=== PATIENT | male | born 1950 | race Caucasian/White ===

== ENCOUNTER 2018-08-07 13:24 | Emergency (ER) | payer OTHER, MEDICAID ==
[~2018-08-07] VITALS: Ht 170.2 cm; Wt 72.6 kg
--- NOTE | 2018-08-07 13:30 | NUR ---
PATIENT AMBULATED TO BED 8 AT THIS TIME.
[2018-08-07 13:33] VITALS: BP 170/88
--- NOTE | 2018-08-07 13:43 | NUR ---
67/M BIB FAMILY, C/O OF LOWER MEDIAL AND LEFT SIDED BACK PAIN X4 DAYS. PAIN IS 10/10 CONSTANT STABBING PAIN. PATIENT DENIES INJURY, FALLS, OR SURGERIES. STATES " I HAVE HAD THIS PAIN BEFORE, BUT NOT LIKE THIS." PAIN IS AGGRAVATED BY BEING IN A POSITION FOR TOO LONG, NOTHING RELIEVES PAIN. DENIES SOB, CP, BREATHING IS EVEN AND UNLABORED. AOX4, CLEAR SPEECH, DENIES WEAKNESS, DIZZINESS, STEADY GAIT. DENIES DYSURIA, N/V/D, OR FEVERS. SAFETY PERCAUTIONS IN PLACE, AWAITING MD, WILL CONTINUE TO MONITOR.
[2018-08-07] MEDS ORDERED: KETOROLAC 60 MG/2 ML VIAL IM ONE (13:45)
[2018-08-07] MEDS ORDERED: MORPHINE SULFATE 4 MG/ML SYR IM ONE (13:45)
[2018-08-07 16:25] VITALS: BP 135/77
--- NOTE | 2018-08-07 16:25 | NUR ---
Patient discharged with v/s stable. Written and verbal after care instructions given and explained. Patient alert, oriented and verbalized understanding of instructions. Ambulatory with steady gait. All questions addressed prior to discharge. ID band removed. Patient advised to follow up with PMD. Rx of Tramadol, Voltaren given. Patient educated on indication of medication including possible reaction and side effects. Opportunity to ask questions provided and answered.
== END 2018-08-07 16:25 | disposition home or self-care (01) ==
LOC: MED 13:24
DX: M47.896 Other spondylosis, lumbar region (principal); E11.40 Type 2 diabetes mellitus with diabetic neuropathy, unspecified
CPT/HCPCS: 72131; 96372; 99284; J1885; J2270